=== PATIENT | female | born 1960 | race Caucasian/White ===

== ENCOUNTER 2023-09-20 05:55 | Emergency (ER) | payer OTHER, MEDICARE, SELFPAY ==
[2023-09-20 05:55] VITALS: BMI 28.1
[2023-09-20 05:56] VITALS: BP 170/106
[2023-09-20 06:11] VITALS: BP 151/83
[2023-09-20 06:44] LABS: % Basophils 0.9 % (0-2); % Eosinophils 2.1 % (0-6); % Immature Granulocytes 0.2 % (0-0.5); % Lymphocytes 38.9 % (20.5-51.1); % Monocytes 9.2 % (1.7-9.3); % Neutrophils 48.7 % (42.2-75.2); Absolute Eosinophils 0.1 10^3/uL (0-0.7); Absolute Lymphocytes 1.7 10^3/uL (1.2-3.4); Absolute Monocytes 0.4 10^3/uL (0.1-0.6); Absolute Neutrophils 2.1 10^3/uL (1.4-6.5); Hematocrit 42.5 % (37.0-47.0); Hemoglobin 15.2 g/dL (12.0-16.0); Mean Corp Hgb Conc. 35.8 g/dL (33.0-37.0); Mean Corpuscular Hgb 32.3 pg (27.0-31.0); Mean Corpuscular Volume 90.2 fL (81.0-99.0); Mean Platelet Volume 9.2 fL (7.4-10.4); Nucleated Red Blood Cells % 0 %; Platelet Count 257 10^3/uL (130-400); Red Blood Cell Count 4.71 10^6/uL (4.20-5.40); Red Cell Dist. Width 11.2 % (11.5-14.5); White Blood Cell Count 4.2 10^3/uL (4.8-10.8)
[2023-09-20 06:52] LABS: ALT (SGPT) 35 U/L (0-35); AST (SGOT) 54 U/L (14-36); Albumin 4.5 g/dl (3.5-5.0); Alkaline Phosphatase 110 U/L (38-126); Blood Urea Nitrogen 17 mg/dl (7-17); Calcium 9.7 mg/dl (8.4-10.2); Carbon Dioxide 27 mmol/L (22-30); Chloride 102 mmol/L (98-107); Estimated Creatinine Clearance 73 ml/min; Glucose 142 mg/dl (70-99); Potassium 3.4 mmol/L (3.5-5.1); Sodium 139 mmol/L (135-145); Total Bilirubin 0.6 mg/dl (0.2-1.3); Total Protein 7.4 g/dl (6.3-8.2); eGFR > 60.00
[2023-09-20 07:00] VITALS: BP 141/80
--- NOTE | 2023-09-20 07:17 | ED.GENMED ---
History of Present Illness
General
Chief Complaint: Heart Rate Problem
Source: patient
Exam Limitations: none
Time Seen by Provider: 09/20/23 06:55
Travel History
Have you had any contact with someone who has COVID-19?: No
Do you have any symptoms of coronavirus? Fever > 100 degrees, chills, cough, shortness of breath, sore throat, loss of taste or smell, muscle aches, or headache?: No
History of Present Illness
History of Present Illness:
63-year-old female with history of hypertension presents complaining of 2 to 3 days worth of palpitations. She states she feels them quite frequently. She denies chest pain lightheadedness or shortness of breath. She notes an irregular heartbeat.
She denies alcohol or caffeine use. She is on metoprolol 12.5 mg twice a day. She is on lisinopril 20 mg daily. No leg swelling recent travel or surgery. No other complaints at this time
Past History
Past History
ED Past Medical History: HTN
ED Past Surgical History: Negative Bowel resection, Brain, Cardiac or Cholecystectomy
Social History
Tobacco: Non-smoker
Alcohol: None
Drug: None
Personal:
Living: with family
Employment: Employed
Family History
Family History: Other (Brother with A. fib)
Phy Exam
Physical Exam
Physical Exam:
General: Well-appearing female no acute respiratory distress
HEENT: Normocephalic atraumatic neck is supple
Heart: Mostly regular with occasional premature beats
Lungs: Clear no wheeze or rales
Extremities: No cyanosis or edema
Course
Orders/Labs/Results
Orders:
Orders
09/20/23 06:00
Electrocardiogram (*1) Urgent
Reason for Study: Palpitations
EKG- Treatment ONCE
09/20/23 06:17
CMP [Comprehensive Metabolic Panel] Urgent
Complete Blood Count/With Diff Urgent
TSH Reflex To Free T4 Urgent
Comment: ADD ON
09/20/23 07:17
Add On- LAB Urgent
Tests Added?: tsh reflex to t4
Abnormal Lab Results
09/20/23
06:17
WBC 4.2 L 10^3/uL
(4.8-10.8)
MCH 32.3 H pg
(27.0-31.0)
RDW 11.2 L %
(11.5-14.5)
Potassium 3.4 L mmol/L
(3.5-5.1)
Glucose 142 H mg/dl
(70-99)
AST 54 H U/L
(14-36)
09/20/23 06:17
09/20/23 06:17
Vital Signs
Initial and Last Documented VS:
Initial Vital Signs
Temp Pulse Resp BP Pulse Ox
97.8 F 106 22 170/106 100
09/20/23 05:56 09/20/23 05:56 09/20/23 05:56 09/20/23 05:56 09/20/23 05:56
Last Documented Vital Signs
Temp Pulse Resp BP Pulse Ox
97.8 F 92 14 151/83 100
09/20/23 05:56 09/20/23 06:30 09/20/23 06:30 09/20/23 06:11 09/20/23 06:30
MDM/Problems Addressed
Differential Diagnosis Includes:
Patient with palpitations. EKG through triage shows sinus rhythm. Patient is on the monitor in the room and she has frequent PVCs, she did have several episodes of bigeminy when I was in the room. Blood pressure 140s over 80s. Will add TSH to
the blood work.
Will discuss findings with cardiology. May consider increasing metoprolol.
*Critical Care Note
Total Time (30-74mins, 75-104mins- exclusive of procedures): Not Applicable
Update Note
Update Note:
Patient has remained stable here. Discussed findings with cardiology. Will increase metoprolol 25 mg twice a day. No indication for admission. She will follow-up with cardiology otherwise
ED Attending Note
-
Portions of this chart may have been created with voice recognition software.� Occasional wrong word or��sound alike� substitutions may have occurred due to the inherent limitations of voice recognition software.
Discharge Plan
Departure
Patient Disposition: Home (Routine Discharge)
Date of Disposition: 09/20/23
Time of Disposition: 08:30
Patient with high blood pressure during this ER visit?: No
Discharge Problem:
Premature ventricular contraction
Instructions: Palpitations (DC)
Prescriptions:
No Action
multivitamin [Multi-Day] 1 EACH tablet
1 ea PO DAILY
cholecalciferol (vitamin D3) [Vitamin D3] 1,000 UNIT capsule
1,000 unit PO DAILY
metoprolol succinate 25 MG tablet extended release 24 hr
25 mg PO DAILY Qty: 14 0RF
lisinopril 20 MG tablet
20 mg PO DAILY Qty: 30 0RF
Referrals:
Yary Dee MD [Family Provider] -
Activity Restrictions/Additional Instructions:
Rest. Stay hydrated. Increase your metoprolol from 12 and half milligrams twice a day to 25 mg twice a day. Please follow-up with cardiology. Return if worse otherwise
Interventions
Interventions:
*Risk Screen - Suicide Last Done: 09/20/23 05:56
*General Assessment Last Done: 09/20/23 06:34
*Neglect/Abuse Screening Last Done: 09/20/23 05:56
ED- Fall Risk Assessment Last Done: 09/20/23 06:34
ED- Cardiac Assessment Last Done: 09/20/23 06:21
ED- Pulmonary Assessment Last Done: 09/20/23 06:21
[2023-09-20 08:00] VITALS: BP 135/75
[2023-09-20 08:35] LABS: TSH Reflex To Free T4 1.23 uIU/ml (0.47-4.68)
== END 2023-09-20 08:56 | disposition home or self-care (01) ==
LOC: EMR 05:55
PROVIDERS: EMERGENCY PHYSICIAN Emergency Medicine; FAMILY PHYSICIAN Family Medicine
DX: I49.3 Ventricular premature depolarization (principal)
CPT/HCPCS: 99284; 80053; 84443; 85025; 93005

== ENCOUNTER → 2023-10-12 13:02 | Outpatient (REF) | payer OTHER, SELFPAY | LOC: RCS 13:02 | PROVIDERS: ATTENDING PHYSICIAN Internal Medicine Cardiovascular Disease; FAMILY PHYSICIAN Family Medicine | DX: R00.2 Palpitations (principal); I10 Essential (primary) hypertension | CPT/HCPCS: 93225; 93226 ==

== ENCOUNTER → 2023-10-26 06:40 | Outpatient (REF) | payer OTHER, SELFPAY | LOC: HWWDC 06:40 | PROVIDERS: ATTENDING PHYSICIAN Obstetrics & Gynecology Gynecology; FAMILY PHYSICIAN Family Medicine | DX: Z12.31 Encounter for screening mammogram for malignant neoplasm of breast (principal) | CPT/HCPCS: 77063; 77067 ==

== ENCOUNTER → 2023-11-03 09:07 | Outpatient (REF) | payer OTHER, SELFPAY | LOC: WDC 09:07 | PROVIDERS: ATTENDING PHYSICIAN Obstetrics & Gynecology Gynecology; FAMILY PHYSICIAN Family Medicine | DX: R92.8 Other abnormal and inconclusive findings on diagnostic imaging of breast (principal) | CPT/HCPCS: 76642 ==

== ENCOUNTER → 2023-11-05 06:36 | Outpatient (REF) | payer OTHER, SELFPAY ==
--- NOTE | 2023-11-05 09:15 | OID.BR.INTR ---
[facility] - Initial
- -
Date of Contact: 11/05/23
Met with patient. Patient given written information on navigator services and support services available at [facility]. Will follow up as needed per protocol.
== END ==
LOC: WDC 06:36
PROVIDERS: ATTENDING PHYSICIAN Obstetrics & Gynecology Gynecology; FAMILY PHYSICIAN Family Medicine
DX: N63.13 Unspecified lump in the right breast, lower outer quadrant (principal)
CPT/HCPCS: 88305; 19083; 77065; A4648

== ENCOUNTER → 2024-10-26 09:52 | Outpatient (REF) | payer OTHER, SELFPAY | LOC: HWWDC 09:52 | PROVIDERS: ATTENDING PHYSICIAN Obstetrics & Gynecology Gynecology; FAMILY PHYSICIAN Family Medicine | DX: Z12.31 Encounter for screening mammogram for malignant neoplasm of breast (principal) | CPT/HCPCS: 77063; 77067 ==

== ENCOUNTER → 2025-01-23 11:02 | Outpatient (REF) | payer OTHER, SELFPAY | LOC: WDC 11:02 | PROVIDERS: ATTENDING PHYSICIAN Surgery; FAMILY PHYSICIAN Family Medicine | DX: R92.2 Inconclusive mammogram (principal); C50.411 Malignant neoplasm of upper-outer quadrant of right female breast; Z17.0 Estrogen receptor positive status [ER+] | CPT/HCPCS: 76641 ==

== ENCOUNTER → 2025-01-30 09:25 | Outpatient (REF) | payer OTHER, SELFPAY | LOC: RCS 09:25 | PROVIDERS: ATTENDING PHYSICIAN Nurse Practitioner; FAMILY PHYSICIAN Family Medicine | DX: I34.0 Nonrheumatic mitral (valve) insufficiency (principal) | CPT/HCPCS: 93306 ==